=== PATIENT | male | born 1965 | race Caucasian/White ===

== ENCOUNTER 2017-04-29 00:23 | Observation (INO) | payer OTHER, SELFPAY ==
[~2017-04-29] VITALS: Ht 185.4 cm; Wt 119.3 kg
--- NOTE | 2017-04-29 13:05 | ER ---
ADMIT: 04/29/2017 RM/LOC: ER [facility] MR#: [id number] [address] [place] [address] Emergency Room Report SEX: M AGE: 51 : 1965 DATE: 04/29/2017 HISTORY OF PRESENT ILLNESS: The patient is a 51-year-old male with past medical history of gastroesophageal reflux disease, came to the ER with chief complaint of chest pain and pressure. The patient states he has anterior mid chest pressure for the last 3 days, which started gradually, and he had it intermittently, but today he had the pain continuously since the morning. The patient states the pain is not pleuritic and is not positional and is not exertional. The patient denies similar pain in the past and states his reflux pain is very different from this one. The patient also added to the history that since 9 p.m. he noticed some left arm numbness. The patient denies any shortness of breath. EMS did each strip of the cardiac activity, and they did not see any ST changes, and the patient was given 324 mg of aspirin p.o., and the patient was given 1 nitroglycerin 0.4 mg sublingual, which decreased the pain per the patient significantly from 4 to 5 to 2. In the ER, EKG did not show any ST or T changes or Q waves or arrhythmia, the patient has sinus bradycardia with a rate of 59. Cardiac enzymes, troponin I was negative. Chest x-ray was negative for any acute changes or abnormalities or infiltrations. PHYSICAL EXAMINATION: HEAD AND NECK: Normal. CHEST: Clear bilaterally. HEART: Normal heart sounds without any murmurs or gallops. ABDOMEN: Soft without any pulsating mass, there is no swelling in the lower extremities, and there is no tenderness in lower extremities or upper extremities. The rest of the physical exam is noncontributory and normal. With a diagnosis of chest pain ruling out acute coronary syndrome, the patient was admitted for further followups and treatments. Dany Loving MD/ sergio JOB #: [id number] CC: Rojas Wilson MD, Attending Physician Sandoval Macias MD, Family Physician
--- NOTE | 2017-04-30 12:19 | HP ---
ADMIT: 04/29/2017 RM/LOC: [facility] MR#: [id number] [address] [place] [address] History and Physical SEX: M AGE: 51 : 1965 DATE OF SERVICE: CHIEF COMPLAINT: Chest pain and pressure. HISTORY OF PRESENT ILLNESS: The patient is a very pleasant, 51-year-old gentleman who normally sees Dr. Macias over at the clinic, just seen him last month. The patient reports that he has an episode of chest pressure, substernal. Radiating into his right arm. Arm tingling as well. Some increased fatigue and shortness of breath yesterday, all day, and then the pain happened. Presented to the Emergency Room because of it. Reports he has been a little more fatigued and tired recently. Snores horribly, his states. No nausea. No vomiting. No other chest pain when he is exercising, such as when he is push mowing the yard. Otherwise, he has been in his usual state of health. Patient reports occasional fluttering of his heart, rare in occasion. Feels like his heart beats fast occasionally but nothing like it used to. PAST MEDICAL HISTORY: 1. Asthma. 2. GERD. 3. History of questionable SVT many, many years ago. Not currently on any medications and having no symptoms clear. FAMILY HISTORY: Mother of a massive heart attack at age 59. SOCIAL HISTORY: Nonsmoker, nondrinker. Works up at [employer] up at the [employer]. , at bedside. MEDICATIONS: He is on: 1. Multivitamin. 2. Omeprazole. ALLERGIES: SULFA. REVIEW OF SYSTEMS: As per HPI. Otherwise, fully reviewed and negative. PHYSICAL EXAMINATION: VITAL SIGNS: Temperature 98.1, pulse 55, respiratory rate 20, blood pressure 124/74, O2 saturation 95% on room air. GENERAL: He is alert and oriented x3. No acute distress. A very pleasant gentleman. HEENT: Normocephalic, atraumatic. Pupils equal, round, and reactive to light and accommodation. Extraocular muscles are intact. No pharyngeal abnormalities other than large tonsils and a very narrow and posterior pharynx. NECK: No lymphadenopathy. Soft, supple. Trachea midline. LUNGS: Clear to auscultation bilaterally. No wheezes, rales, or rhonchi. HEART: Regular rate and rhythm. No murmurs, rubs, or gallops. ABDOMEN: Soft, nontender, nondistended. Bowel sounds present. ADMIT: 04/29/2017 RM/LOC: [facility] MR#: [id number] [address] [place] [facility] [place] [address] History and Physical SEX: M AGE: 51 : 1965 EXTREMITIES: No cyanosis, clubbing, or edema. MUSCULOSKELETAL: 5/5 strength in all 4 extremities. NEUROLOGICAL: No focal deficits noted. Cranial nerves II through XII grossly intact. SKIN: No rashes noted. PSYCHIATRIC: Very pleasant. Normal mood and affect. LABORATORY AND X-RAY DATA: His troponin has been negative x2. Chest x-ray reviewed and negative. EKG reportedly negative; it's not on the chart currently. Creatinine is 0.9. Mag 2.4. White count 6.3. Hemoglobin 12.8. Platelets 208. Potassium 3.6. ASSESSMENT/PLAN: 1. Chest pain. 2. Bradycardia. 3. Asthma. 4. Obesity. Plan at this point in time, given his risk factors, I think he needs a stress test. We will try to schedule as an outpatient. His troponin is negative thus far. Does have quite a bit of bradycardia while sleeping at night. Snores horribly and has posterior pharynx narrowing. I suspect he has some underlying sleep apnea. We will get a stress test scheduled, and he will follow up in clinic with Dr. Macias for scheduling of a sleep study. If he continues to have palpitations and everything negative, may consider getting a Holter monitor in the future, but for now, we discussed at length the importance of diagnosing possible and likely underlying sleep apnea. Given his risk factors and family history, we need to rule out some ischemic burden as well. We will do these things as an outpatient. The patient is agreeable to this. Samuel Marquez MD/ lyla JOB #: [id number] CC: Samuel Marquez MD, Attending Physician Samuel Marquez MD, Family Physician
[2017-04-30] MEDS ORDERED: PRILOSEC DPS20 MG PO (12:26)
[2017-04-30] MEDS ORDERED: ASA CHILDREN'S81 MG PO (12:26)
== END 2017-04-29 12:00 | disposition home or self-care (01) ==
LOC: ER 00:23 → 4PCU 01:17
PROVIDERS: ADMIT Internal Medicine
DX: R07.9 Chest pain, unspecified (principal); J45.909 Unspecified asthma, uncomplicated; K21.9 Gastro-esophageal reflux disease without esophagitis; R00.1 Bradycardia, unspecified; Z88.2 Allergy status to sulfonamides; Z82.49 Family history of ischemic heart disease and other diseases of the circulatory system